=== PATIENT | female | born 1955 | race Caucasian/White ===

== ENCOUNTER → 2017-07-19 | Outpatient (CLI) | payer OTHER ==
[~2017-07-19] MED LIST: AMARYL 2MG TABLE2 MG PO; GLIMEPIRIDE 4MG4 MG PO; LEVAQUIN500 MG PO; LISINOPRIL30 MG PO; MEDROL 4MG. DOSE4 MG PO; PANTOPRAZOLE SO40 MG PO
--- NOTE | 2017-07-19 20:04 | RADIOLOGY REPORT PS360 ---
HIP LT 2-3V W/PELVIS IF PERFOR Ordering Physician: Elin Cabrera MD Patient Age: 62 years: Female HISTORY: LEFT HIP PAIN TECHNIQUE: AP frog-leg view left hip. AP pelvis. COMPARISON :04-03-13 CT abdomen pelvis FINDINGS Osseous pelvis is intact. No fracture nor lesion evident. Sacrum and iliac bone and was unremarkable. AP view the hips appear stable and within normal limits. There is some mild hypertrophic lipping at the superior rim of right acetabulum more so than left which could reflect some minor degenerative changes but the joint spaces well-maintained. Femoral head normal density and contour bilaterally. Femoral neck intact. Left hip. AP and frog-leg view of the left hip appear satisfactory.. The minor lipping at superior acetabulum more evident on right than left IMPRESSION: --------- Osseous pelvis intact Left hip appears unchanged since 2014 CT pelvis Perhaps subtle early hypertrophic lipping at superior acetabulum more evident on right than left.
== END ==
LOC: RAD 14:42
DX: M25.552 Pain in left hip (principal)